=== PATIENT | female | born 1950 | race Caucasian/White ===

== ENCOUNTER 2018-04-27 05:59 | Observation (INO) | payer OTHER, BC ==
[2018-04-20 11:47] LABS: BASOPHIL % 0.5 % (0-2); PLATELET COUNT 309 x10^3mcL (130-400); RED CELL DISTRIBUTION WIDTH 13.2 % (11.5-14.5)
[2018-04-20 11:55] LABS: UA SPECIFIC GRAVITY <=1.005 (1.005-1.035); microscopic required? YES; urine erythrocyte NEGATIVE (NEGATIVE)
[2018-04-20 12:47] LABS: CALCIUM 9.6 mg/dL (8.5-10.1); CARBON DIOXIDE 28.9 mmol/L (21-32); CHLORIDE SERUM 103 mmol/L (98-107); CREATININE SERUM 0.8 mg/dL (0.6-1.0); GFR1 > 60 mL/min; GLUCOSE SERUM 165 mg/dL (74-106); POTASSIUM SERUM 3.7 mmol/L (3.5-5.1); SODIUM SERUM 140 mmol/L (136-145)
[~2018-04-27] VITALS: Ht 157.5 cm; Wt 79.8 kg
[2018-04-27 06:26] VITALS: BP 122/64
[2018-04-27 21:18] VITALS: BP 124/64
[2018-04-28 05:32] VITALS: BP 111/58
[2018-04-28 09:03] VITALS: BP 106/54
[2018-04-28 12:23] VITALS: BP 106/54
== END 2018-04-28 14:30 | disposition home or self-care (01) | DRG 502 ==
LOC: DS 05:59 → OR 07:30 → DS 07:30 → MU 09:31
PROVIDERS: Neuromusculoskeletal Medicine, Sports Medicine
PROC: 0RNK0ZZ Release Left Shoulder Joint, Open Approach (ICD-10-PCS; 2018-04-27)
PROC: 0LM20ZZ Reattachment of Left Shoulder Tendon, Open Approach (ICD-10-PCS; principal; 2018-04-27 07:30)
DX: M75.122 Complete rotator cuff tear or rupture of left shoulder, not specified as traumatic (principal); I10 Essential (primary) hypertension; E11.9 Type 2 diabetes mellitus without complications
CPT/HCPCS: 82962; G0378; J1580; J2250; J2405; J2704; J3010; J3490; J7030